=== PATIENT | male | born 1960 | race African-American/Black ===

== ENCOUNTER 2022-04-08 21:39 | Inpatient (IN) | payer MEDICARE ==
[~2022-04-08] VITALS: Ht 170.2 cm; Wt 49.6 kg
[~2022-04-08 21:39] MED LIST: MEDS
[2022-04-08 21:50] VITALS: BP 129/80
[2022-04-08] MEDS ORDERED: ACETAMINOPHEN 650MG SUPP PR PRN (23:45)
[2022-04-08] MEDS ORDERED: HYDRALAZINE 20MG/ML VIAL IV PRN (23:45)
[2022-04-08] MEDS ORDERED: DEXTROSE 50% WATER 50ML SYRINGE IV PRN (23:45)
[2022-04-08] MEDS ORDERED: ONDANSETRON HCL 4MG/2ML INJ IV PRN (23:45)
[2022-04-09] MEDS ORDERED: HYDRALAZINE 10 MG in SODIUM CHLORIDE 0.9% 49.5 ML IV PRN (00:15)
[2022-04-09] MEDS: IPRATROPIUM/ALBUTEROL 0.5-3(2.5)MG/3ML NEB HHN SCH ×5 (01:27→21:10)
[2022-04-09] MEDS ORDERED: METHYLPREDNISOLONE SOD SUCC 40 MG/ML VIAL IV SCH (06:00)
[2022-04-09] MEDS: BLOOD SUGAR DIAGNOSTIC STRIP TEST SCH ×4 (06:12→21:33)
[2022-04-09 08:00] VITALS: BP 127/76
[2022-04-09] MEDS: INSULIN LISPRO 100 UNITS/ML SUBCUT SCH ×4 (08:11→21:45)
[2022-04-09] MEDS: FOLIC ACID 1MG TABLET PO SCH (08:31)
[2022-04-09] MEDS: QUETIAPINE FUMARATE 50MG TABLET PO SCH ×2 (08:32→21:33)
[2022-04-09] MEDS: THIAMINE HCL 100MG TABLET PO SCH (08:32)
[2022-04-09] MEDS: PANTOPRAZOLE SODIUM 40 MG/VIAL IV SCH (08:33)
[2022-04-09] MEDS: ENOXAPARIN 30MG/0.3ML SYR SUBCUT SCH (08:39)
[2022-04-09] MEDS: PANTOT AC/MIN OIL/PET HY-PHL OINT (AQUAPHOR) TOP SCH (09:00)
[2022-04-09 20:06] VITALS: BP 137/80
[2022-04-10] MEDS: IPRATROPIUM/ALBUTEROL 0.5-3(2.5)MG/3ML NEB HHN SCH ×6 (01:20→21:47)
[2022-04-10] MEDS: BLOOD SUGAR DIAGNOSTIC STRIP TEST SCH ×4 (06:30→21:00)
[2022-04-10 08:00] VITALS: BP 143/91
[2022-04-10] MEDS: INSULIN LISPRO 100 UNITS/ML SUBCUT SCH ×4 (08:26→21:00)
[2022-04-10] MEDS: PANTOT AC/MIN OIL/PET HY-PHL OINT (AQUAPHOR) TOP SCH (09:00)
[2022-04-10] MEDS: QUETIAPINE FUMARATE 50MG TABLET PO SCH ×2 (09:40→20:38)
[2022-04-10] MEDS: FOLIC ACID 1MG TABLET PO SCH (09:40)
[2022-04-10] MEDS: PANTOPRAZOLE SODIUM 40 MG/VIAL IV SCH (09:40)
[2022-04-10] MEDS: THIAMINE HCL 100MG TABLET PO SCH (09:40)
[2022-04-10] MEDS: ENOXAPARIN 30MG/0.3ML SYR SUBCUT SCH (09:41)
[2022-04-10] MEDS: ACETAMINOPHEN 325MG TABLET PO PRN (18:01)
[2022-04-10 20:00] VITALS: BP 137/69
[2022-04-11] MEDS: IPRATROPIUM/ALBUTEROL 0.5-3(2.5)MG/3ML NEB HHN SCH ×7 (01:05→23:00)
[2022-04-11] MEDS: BLOOD SUGAR DIAGNOSTIC STRIP TEST SCH (06:30)
[2022-04-11 07:04] LABS: CHLORIDE 102 mEq/L (98-107)
[2022-04-11 07:06] LABS: BASOPHILS % 0.4 % (0.0-2.0); EOSINOPHILS % 2.3 % (0.0-5.0); HEMATOCRIT. 32.1 % (42.0-52.0); HEMOGLOBIN. 11.1 g/dL (14.0-18.0); LYMPHOCYTES % 10.5 % (20.0-50.0); MEAN CORPUSCULAR HEMOGLOBIN 34.6 pg (28.0-32.0); MEAN CORPUSCULAR VOLUME 99.7 fL (80.0-94.0); MEAN PLATELET VOLUME 8.7 fl (7.4-10.4); MONOCYTES % 10.2 % (2.0-8.0); NEUTROPHILS % 76.6 % (40.0-76.0); PLATELET 368 x1000/uL (130-400); RED BLOOD CELL COUNT 3.22 mill/uL (4.7-6.1); RED CELL DISTRIBUTION WIDTH 13.2 % (11.6-14.6)
[2022-04-11] MEDS: INSULIN LISPRO 100 UNITS/ML SUBCUT SCH (07:35)
[2022-04-11 08:06] VITALS: BP 140/86
[2022-04-11] MEDS: PANTOT AC/MIN OIL/PET HY-PHL OINT (AQUAPHOR) TOP SCH (09:00)
[2022-04-11] MEDS: QUETIAPINE FUMARATE 50MG TABLET PO SCH ×2 (09:11→20:53)
[2022-04-11] MEDS: FOLIC ACID 1MG TABLET PO SCH (09:11)
[2022-04-11] MEDS: FAMOTIDINE 20MG TABLET PO SCH ×2 (09:11→20:53)
[2022-04-11] MEDS: ENOXAPARIN 30MG/0.3ML SYR SUBCUT SCH (09:11)
[2022-04-11] MEDS: THIAMINE HCL 100MG TABLET PO SCH (09:11)
[2022-04-11 12:00] VITALS: BP 138/88
[2022-04-11 16:00] VITALS: BP 127/75
[2022-04-11 20:00] VITALS: BP 165/93
[2022-04-12] MEDS: IPRATROPIUM/ALBUTEROL 0.5-3(2.5)MG/3ML NEB HHN SCH ×3 (07:39→16:43)
[2022-04-12 08:00] VITALS: BP 153/85
[2022-04-12] MEDS: FOLIC ACID 1MG TABLET PO SCH (08:36)
[2022-04-12] MEDS: THIAMINE HCL 100MG TABLET PO SCH (08:36)
[2022-04-12] MEDS: FAMOTIDINE 20MG TABLET PO SCH ×2 (08:36→21:00)
[2022-04-12] MEDS: ENOXAPARIN 30MG/0.3ML SYR SUBCUT SCH (08:36)
[2022-04-12] MEDS: QUETIAPINE FUMARATE 50MG TABLET PO SCH ×2 (08:36→21:00)
[2022-04-12] MEDS: PANTOT AC/MIN OIL/PET HY-PHL OINT (AQUAPHOR) TOP SCH (09:00)
[2022-04-12 20:00] VITALS: BP 145/81
[2022-04-13] MEDS: IPRATROPIUM/ALBUTEROL 0.5-3(2.5)MG/3ML NEB HHN SCH ×3 (00:30→16:06)
[2022-04-13 08:00] VITALS: BP 150/83
[2022-04-13] MEDS: THIAMINE HCL 100MG TABLET PO SCH (08:58)
[2022-04-13] MEDS: FOLIC ACID 1MG TABLET PO SCH (08:58)
[2022-04-13] MEDS: QUETIAPINE FUMARATE 50MG TABLET PO SCH ×2 (08:58→21:23)
[2022-04-13] MEDS: FAMOTIDINE 20MG TABLET PO SCH ×2 (08:58→21:22)
[2022-04-13] MEDS: ENOXAPARIN 30MG/0.3ML SYR SUBCUT SCH (08:59)
[2022-04-13] MEDS: PANTOT AC/MIN OIL/PET HY-PHL OINT (AQUAPHOR) TOP SCH (09:00)
[2022-04-13 20:00] VITALS: BP 149/84
[2022-04-13] MEDS: ACETAMINOPHEN 325MG TABLET PO PRN (21:23)
[2022-04-14] MEDS: IPRATROPIUM/ALBUTEROL 0.5-3(2.5)MG/3ML NEB HHN SCH ×3 (00:29→15:18)
[2022-04-14 08:00] VITALS: BP 143/82
[2022-04-14] MEDS: THIAMINE HCL 100MG TABLET PO SCH (08:37)
[2022-04-14] MEDS: QUETIAPINE FUMARATE 50MG TABLET PO SCH ×2 (08:37→21:26)
[2022-04-14] MEDS: FAMOTIDINE 20MG TABLET PO SCH ×2 (08:37→21:26)
[2022-04-14] MEDS: FOLIC ACID 1MG TABLET PO SCH (08:37)
[2022-04-14] MEDS: ENOXAPARIN 30MG/0.3ML SYR SUBCUT SCH (08:37)
[2022-04-14] MEDS: PANTOT AC/MIN OIL/PET HY-PHL OINT (AQUAPHOR) TOP SCH (09:00)
[2022-04-14 20:00] VITALS: BP 127/73
[2022-04-15] MEDS: IPRATROPIUM/ALBUTEROL 0.5-3(2.5)MG/3ML NEB HHN SCH (07:33)
[2022-04-15 08:00] VITALS: BP 138/65
[2022-04-15] MEDS: FAMOTIDINE 20MG TABLET PO SCH ×2 (09:44→22:06)
[2022-04-15] MEDS: FOLIC ACID 1MG TABLET PO SCH (09:44)
[2022-04-15] MEDS: QUETIAPINE FUMARATE 50MG TABLET PO SCH ×2 (09:44→22:07)
[2022-04-15] MEDS: THIAMINE HCL 100MG TABLET PO SCH (09:44)
[2022-04-15] MEDS: ENOXAPARIN 30MG/0.3ML SYR SUBCUT SCH (09:45)
[2022-04-15] MEDS: PANTOT AC/MIN OIL/PET HY-PHL OINT (AQUAPHOR) TOP SCH (09:47)
[2022-04-15 20:00] VITALS: BP 137/86
[2022-04-16 08:00] VITALS: BP 141/72
[2022-04-16] MEDS: THIAMINE HCL 100MG TABLET PO SCH (08:38)
[2022-04-16] MEDS: ENOXAPARIN 30MG/0.3ML SYR SUBCUT SCH (08:38)
[2022-04-16] MEDS: QUETIAPINE FUMARATE 50MG TABLET PO SCH ×2 (08:38→20:22)
[2022-04-16] MEDS: PANTOT AC/MIN OIL/PET HY-PHL OINT (AQUAPHOR) TOP SCH (08:38)
[2022-04-16] MEDS: FOLIC ACID 1MG TABLET PO SCH (08:38)
[2022-04-16] MEDS: FAMOTIDINE 20MG TABLET PO SCH ×2 (08:38→20:22)
[2022-04-16] MEDS: ACETAMINOPHEN 325MG TABLET PO PRN (16:06)
[2022-04-16 19:38] VITALS: BP 158/96
[2022-04-17 08:00] VITALS: BP 160/90
[2022-04-17] MEDS: QUETIAPINE FUMARATE 50MG TABLET PO SCH ×2 (08:34→20:10)
[2022-04-17] MEDS: FAMOTIDINE 20MG TABLET PO SCH ×2 (08:34→20:10)
[2022-04-17] MEDS: FOLIC ACID 1MG TABLET PO SCH (08:34)
[2022-04-17] MEDS: ENOXAPARIN 30MG/0.3ML SYR SUBCUT SCH (08:34)
[2022-04-17] MEDS: THIAMINE HCL 100MG TABLET PO SCH (08:34)
[2022-04-17] MEDS: PANTOT AC/MIN OIL/PET HY-PHL OINT (AQUAPHOR) TOP SCH (08:35)
[2022-04-17] MEDS ORDERED: QUET50TA PO (11:40)
[2022-04-17] MEDS ORDERED: FOLI-43 PO (11:40)
[2022-04-17] MEDS ORDERED: THIA100T72 PO (11:40)
[2022-04-17] MEDS: AMLODIPINE 2.5MG TABLET PO SCH (13:13)
[2022-04-18 08:00] VITALS: BP 145/73
[2022-04-18] MEDS: FOLIC ACID 1MG TABLET PO SCH (09:53)
[2022-04-18] MEDS: FAMOTIDINE 20MG TABLET PO SCH (09:54)
[2022-04-18] MEDS: THIAMINE HCL 100MG TABLET PO SCH (09:54)
[2022-04-18] MEDS: QUETIAPINE FUMARATE 50MG TABLET PO SCH (09:54)
[2022-04-18] MEDS: AMLODIPINE 2.5MG TABLET PO SCH (09:54)
[2022-04-18] MEDS: ENOXAPARIN 30MG/0.3ML SYR SUBCUT SCH (09:55)
[2022-04-18] MEDS: PANTOT AC/MIN OIL/PET HY-PHL OINT (AQUAPHOR) TOP SCH (09:55)
[2022-04-18 11:10] VITALS: BP 136/81
== END 2022-04-18 13:00 | disposition home health service (06) | DRG 92 ==
PROVIDERS: ADMIT Psychiatry & Neurology Neurology; ATTEND Internal Medicine Nephrology
DX: G92.8 Other toxic encephalopathy (principal); E44.1 Mild protein-calorie malnutrition; I50.32 Chronic diastolic (congestive) heart failure; Z68.1 Body mass index [BMI] 19.9 or less, adult; F06.34 Mood disorder due to known physiological condition with mixed features; H91.3 Deaf nonspeaking, not elsewhere classified; R53.81 Other malaise; F14.10 Cocaine abuse, uncomplicated; F12.10 Cannabis abuse, uncomplicated; D53.9 Nutritional anemia, unspecified; R74.01 Elevation of levels of liver transaminase levels; F17.210 Nicotine dependence, cigarettes, uncomplicated; Z87.01 Personal history of pneumonia (recurrent); Z59.00 Homelessness unspecified; F10.10 Alcohol abuse, uncomplicated; Z86.19 Personal history of other infectious and parasitic diseases; Z87.09 Personal history of other diseases of the respiratory system
CPT/HCPCS: 36415; 71045; 80048; 82962; 85025; 92523; 92610; 93970; 94640; 97110; 97116; 97162; 97166; 97530; 97535; C9113; J1650; J1815; J2920

== ENCOUNTER 2022-04-18 20:05 | Emergency (ER) | payer MEDICARE ==
[~2022-04-18] VITALS: Ht 165.1 cm; Wt 56.8 kg
[~2022-04-18 20:05] MED LIST changes: +FOLI-43 PO; -MEDS; +QUET50TA PO; +THIA100T72 PO
[2022-04-18 21:30] VITALS: BP 147/95
== END 2022-04-18 22:22 | disposition home or self-care (01) ==
LOC: ER 20:05
DX: R10.9 Unspecified abdominal pain (principal)
CPT/HCPCS: 99283